=== PATIENT | female | born 1985 | race African-American/Black ===

== ENCOUNTER 2018-10-01 18:38 | Emergency (ER) | payer BC ==
[~2018-10-01] VITALS: Ht 162.6 cm; Wt 122.3 kg
[~2018-10-01 18:38] MED LIST: ALEVE220 MG OR; AMOXICILLIN500 MG PO; CIPRO500 MG PO; CIPROFLOXACN500 MG PO; FLEXERIL OR; FLEXERIL PO; IRON325 M1 PO; LOPRESSOR25 MG PO; LORTAB 5 OR; METOPROL TAR25 MG PO; NAPROSYN500 MG OR; NAPROSYN500 MG PO; NEXIUM20 M1 PO; NO; NO HOME MEDS; NO MEDS; PENICILLN VK500 MG OR; PENICILLN VK500 MG PO; PROTONIX40 MG OR; TRAMADOL HCL50 MG OR; TRAMADOL HCL50 MG PO; ULTRAM50 M1 OR; ULTRAM50 M1 PO; ULTRAM50 MG OR; ZOFRAN ODT4 MG PO
[2018-10-01 20:03] LABS: COCAINE NEGATIVE (NEGATIVE); TETRAHYDROCANNABIONOL NEGATIVE (NEGATIVE)
[2018-10-01 20:04] LABS: BARBITURATES NEGATIVE (NEGATIVE); METHADONE NEGATIVE (NEGATIVE); OXCYCODONE NEGATIVE (NEGATIVE); TRICYLIC ANTIDEPRESSANTS NEGATIVE (NEGATIVE)
[2018-10-01] MEDS ORDERED: IBUPROFEN600 MG PO (21:09)
[2018-10-01 21:27] VITALS: BP 176/86
== END 2018-10-01 21:27 | disposition home or self-care (01) | DRG 103 ==
LOC: ED 18:38
PROVIDERS: Emergency Medicine
DX: R51 Headache (principal); F15.90 Other stimulant use, unspecified, uncomplicated; F17.210 Nicotine dependence, cigarettes, uncomplicated

== ENCOUNTER 2018-11-20 00:06 | Emergency (ER) | payer BC ==
[~2018-11-20] VITALS: Ht 162.6 cm; Wt 122.7 kg
[~2018-11-20 00:06] MED LIST changes: +IBUPROFEN600 MG PO
[2018-11-20 00:51] LABS: HEMATOCRIT 34.2 % (37.0-47.0); IMMATURE GRANULOCYTES 0.3 % (0.0-5.0); MEAN CORPUSCULAR HGB 21.9 pG CALC (26.0-32.0); MEAN CORPUSCULAR HGB CONC 30.4 g/L CALC (32.0-36.0); NEUT# 9.09 thou/uL (2.00-7.15); RED BLOOD COUNT 4.74 mill/uL (4.20-5.60); RED CELL DISTRI WIDTH 16.5 % (11.5-15.5)
[2018-11-20 01:01] LABS: HEMOGLOBIN 10.4 g/dl (12.0-16.0); MEAN CELL VOLUME 72.2 fL CALC (80.0-100.0)
[2018-11-20] MEDS ORDERED: AMOXICILLIN500 MG PO (01:55)
[2018-11-20 02:22] VITALS: BP 160/90
== END 2018-11-20 02:15 | disposition home or self-care (01) | DRG 153 ==
LOC: ED 00:06
PROVIDERS: Family Medicine
DX: J01.90 Acute sinusitis, unspecified (principal); I10 Essential (primary) hypertension; F17.210 Nicotine dependence, cigarettes, uncomplicated

== ENCOUNTER 2019-05-03 16:25 | Emergency (ER) | payer BC ==
[~2019-05-03] VITALS: Ht 162.6 cm; Wt 130.0 kg
[2019-05-03 18:22] VITALS: BP 137/90
== END 2019-05-03 18:26 | disposition home or self-care (01) | DRG 556 ==
LOC: ED 16:25
DX: M79.645 Pain in left finger(s) (principal); M79.644 Pain in right finger(s); R20.0 Anesthesia of skin; I10 Essential (primary) hypertension; F17.200 Nicotine dependence, unspecified, uncomplicated; W93.2XXA Prolonged exposure in deep freeze unit or refrigerator, initial encounter; Y93.89 Activity, other specified; Y92.89 Other specified places as the place of occurrence of the external cause; Y99.0 Civilian activity done for income or pay

== ENCOUNTER 2019-05-28 20:12 | Emergency (ER) | payer BC ==
[~2019-05-28] VITALS: Ht 162.6 cm; Wt 113.0 kg
[2019-05-28 21:25] LABS: URINE BILIRUBIN - DIPSTICK NEGATIVE (NEGATIVE); URINE BLOOD DIPSTICK TRACE-INTACT (NEGATIVE); URINE COLOR YELLOW; URINE GLUCOSE - DIPSTICK NEGATIVE (NEGATIVE); URINE KETONE NEGATIVE (NEGATIVE); URINE LEUK ESTERASE TRACE (Negative); URINE NITRITE - DIPSTICK NEGATIVE (Negative); URINE PROTEIN - DIPSTICK NEGATIVE (NEG-TRACE); URINE SPECIFIC GRAVITY 1.025; URINE UROBILINOGEN - DIPSTICK 0.2 E.U./dL (0.2)
[2019-05-28 21:28] LABS: URINE CLARITY CLEAR
[2019-05-28 21:47] VITALS: BP 164/104
== END 2019-05-28 21:47 | disposition home or self-care (01) | DRG 563 ==
LOC: ED 20:12
PROVIDERS: Emergency Medicine
DX: S29.012A Strain of muscle and tendon of back wall of thorax, initial encounter (principal); X58.XXXA Exposure to other specified factors, initial encounter; O10.919 Unspecified pre-existing hypertension complicating pregnancy, unspecified trimester; O99.330 Smoking (tobacco) complicating pregnancy, unspecified trimester; F17.200 Nicotine dependence, unspecified, uncomplicated; Z3A.00 Weeks of gestation of pregnancy not specified

== ENCOUNTER 2019-06-13 19:45 | Emergency (ER) | payer BC ==
[~2019-06-13] VITALS: Ht 162.6 cm; Wt 114.0 kg
[2019-06-13 20:29] LABS: URINE BILIRUBIN - DIPSTICK NEGATIVE (NEGATIVE); URINE BLOOD DIPSTICK TRACE-INTACT (NEGATIVE); URINE COLOR YELLOW; URINE GLUCOSE - DIPSTICK NEGATIVE (NEGATIVE); URINE KETONE NEGATIVE (NEGATIVE); URINE LEUK ESTERASE NEGATIVE (NEGATIVE); URINE NITRITE - DIPSTICK NEGATIVE (Negative); URINE PROTEIN - DIPSTICK NEGATIVE (NEG-TRACE); URINE SPECIFIC GRAVITY >=1.030; URINE UROBILINOGEN - DIPSTICK 0.2 E.U./dL (0.2)
[2019-06-13] MEDS ORDERED: PRENATAL1 TA1 PO (20:50)
[2019-06-13 20:59] VITALS: BP 153/82
== END 2019-06-13 21:00 | disposition home or self-care (01) | DRG 833 ==
LOC: ED 19:45
DX: O26.891 Other specified pregnancy related conditions, first trimester (principal); R10.30 Lower abdominal pain, unspecified; O99.331 Smoking (tobacco) complicating pregnancy, first trimester; F17.210 Nicotine dependence, cigarettes, uncomplicated; Z3A.01 Less than 8 weeks gestation of pregnancy

== ENCOUNTER 2019-06-21 06:58 | Emergency (ER) | payer BC ==
[~2019-06-21] VITALS: Ht 162.6 cm; Wt 118.0 kg
[~2019-06-21 06:58] MED LIST changes: +PRENATAL1 TA1 PO
[2019-06-21 08:20] LABS: IMMATURE GRANULOCYTES 2.4 % (0.0-5.0); MEAN CELL VOLUME 71.2 fL CALC (80.0-100.0); MEAN CORPUSCULAR HGB 20.9 pG CALC (26.0-32.0); MEAN CORPUSCULAR HGB CONC 29.4 g/L CALC (32.0-36.0); NEUT# 13.01 thou/uL (2.00-7.15); RED BLOOD COUNT 3.3 mill/uL (4.20-5.60)
[2019-06-21 08:33] LABS: HEMATOCRIT 23.5 % (37.0-47.0)
[2019-06-21 08:34] LABS: HEMOGLOBIN 6.9 g/dl (12.0-16.0)
[2019-06-21 08:38] LABS: ALKALINE PHOSPHATASE 69 u/l (38-126); BILIRUBIN, TOTAL 0.2 mg/dL (0.0-1.4); BUN 6 mg/dL (7-17); BUN/CREATININE RATIO 6 (12-20 (CALC)); CHLORIDE 110 mmol/l (95-108); GFR > 60 ML/MIN (>=60 (CALC)); GFR FOR AFR.AMER. > 60 ML/MIN (>=60 (CALC)); LIPASE 54 u/l (23-300); SGOT/AST 20 u/l (14-36); SODIUM 137 mmol/l (137-146)
[2019-06-21 08:46] LABS: AMYLASE 33 u/l (30-110); ANION GAP 12 (6-22 (CALC))
[2019-06-21 08:47] LABS: ALBUMIN 2.7 g/dL (3.2-5.0); CARBON DIOXIDE 19 mmol/l (22-30); TOTAL PROTEIN 5.4 g/dL (6.3-8.2)
[2019-06-21 09:12] LABS: HEMATOCRIT 22.7 % (37.0-47.0)
[2019-06-21 09:14] LABS: HEMOGLOBIN 6.8 g/dl (12.0-16.0)
[2019-06-21 09:19] LABS: BETA-HCG, QUANT(RESULT NUMBER) 35803 mIU/mL
[2019-06-21 11:51] VITALS: BP 123/57
== END 2019-06-21 11:52 | DRG 833 ==
LOC: ED 06:58
PROVIDERS: Family Medicine
DX: O00.90 Unspecified ectopic pregnancy without intrauterine pregnancy (principal); F17.200 Nicotine dependence, unspecified, uncomplicated
CPT/HCPCS: J0131

== ENCOUNTER 2019-06-25 21:12 | Emergency (ER) | payer BC ==
[~2019-06-25] VITALS: Ht 162.6 cm; Wt 118.0 kg
[2019-06-25 22:56] VITALS: BP 180/82
== END 2019-06-25 22:59 | disposition home or self-care (01) | DRG 921 ==
LOC: ED 21:12
DX: L76.22 Postprocedural hemorrhage of skin and subcutaneous tissue following other procedure (principal); I10 Essential (primary) hypertension; F17.210 Nicotine dependence, cigarettes, uncomplicated; Y83.6 Removal of other organ (partial) (total) as the cause of abnormal reaction of the patient, or of later complication, without mention of misadventure at the time of the procedure; Z90.79 Acquired absence of other genital organ(s)

== ENCOUNTER 2019-08-18 14:32 | Emergency (ER) | payer OTHER, BC ==
[~2019-08-18] VITALS: Ht 162.6 cm; Wt 118.0 kg
[2019-08-18] MEDS ORDERED: LOPRESSOR50 M1 PO (15:20)
[2019-08-18] MEDS ORDERED: FLEXERIL PO (16:41)
[2019-08-18 17:00] VITALS: BP 140/85
== END 2019-08-18 17:06 | disposition home or self-care (01) | DRG 552 ==
LOC: ED 14:32
DX: S16.1XXA Strain of muscle, fascia and tendon at neck level, initial encounter (principal); I10 Essential (primary) hypertension; F17.210 Nicotine dependence, cigarettes, uncomplicated; V49.9XXA Car occupant (driver) (passenger) injured in unspecified traffic accident, initial encounter

== ENCOUNTER 2019-12-14 | Emergency (ER) | payer BC ==
[~2019-12-14] MED LIST changes: +LOPRESSOR50 M1 PO
== END 2019-12-14 08:22 | disposition home or self-care (01) | DRG 558 ==
DX: M77.9 Enthesopathy, unspecified (principal); I10 Essential (primary) hypertension; F17.210 Nicotine dependence, cigarettes, uncomplicated

== ENCOUNTER 2020-11-25 20:59 | Emergency (ER) | payer BC ==
[~2020-11-25] VITALS: Ht 162.6 cm; Wt 120.5 kg
[2020-11-25] MEDS ORDERED: MINOCYCLINE100 MG PO (21:34)
[2020-11-25 22:20] VITALS: BP 156/87
== END 2020-11-25 22:20 | disposition home or self-care (01) | DRG 951 ==
LOC: ED 20:59
DX: Z20.822 Contact with and (suspected) exposure to COVID-19 (principal); I10 Essential (primary) hypertension; F17.210 Nicotine dependence, cigarettes, uncomplicated

== ENCOUNTER 2020-11-28 19:03 | Emergency (ER) | payer BC ==
[~2020-11-28] VITALS: Ht 162.6 cm; Wt 120.0 kg
[~2020-11-28 19:03] MED LIST changes: +MINOCYCLINE100 MG PO
[2020-11-28 19:16] VITALS: BP 144/98
== END 2020-11-28 20:50 | disposition left against medical advice (07) | DRG 951 ==
LOC: ED 19:03 → LWOBS 20:44
DX: Z53.21 Procedure and treatment not carried out due to patient leaving prior to being seen by health care provider (principal)

== ENCOUNTER 2022-01-16 02:20 | Emergency (ER) | payer SELFPAY ==
[~2022-01-16] VITALS: Ht 162.6 cm; Wt 131.0 kg
[2022-01-16 02:26] VITALS: BP 152/87
[2022-01-16 02:31] VITALS: BP 142/54
[2022-01-16] MEDS ORDERED: FERRAPLUS 90 PO (02:53)
[2022-01-16] MEDS ORDERED: HYDROCHLOROT25 MG PO (02:53)
[2022-01-16 03:18] LABS: HEMATOCRIT 44.4 % (37.0-47.0); HEMOGLOBIN 14.1 g/dl (12.0-16.0); IMMATURE GRANULOCYTES 0.5 % (0.0-5.0); MEAN CORPUSCULAR HGB CONC 31.8 g/dL CAL (32.0-36.0); NEUT# 6.83 thou/uL (2.00-7.15); RED BLOOD COUNT 5.23 mill/uL (4.20-5.60); RED CELL DISTRI WIDTH 15.6 % (11.5-15.5)
[2022-01-16 03:21] LABS: MEAN CELL VOLUME 84.9 fL CALC (80.0-100.0)
[2022-01-16 03:22] LABS: URINE BILIRUBIN - DIPSTICK NEGATIVE (NEGATIVE); URINE BLOOD DIPSTICK SMALL (NEGATIVE); URINE COLOR YELLOW; URINE GLUCOSE - DIPSTICK NEGATIVE (NEGATIVE); URINE KETONE NEGATIVE (NEGATIVE); URINE PROTEIN - DIPSTICK NEGATIVE (NEG-TRACE); URINE SPECIFIC GRAVITY <=1.005; URINE UROBILINOGEN - DIPSTICK 0.2 E.U./dL (0.2)
[2022-01-16 03:23] LABS: URINE LEUK ESTERASE NEGATIVE (NEGATIVE); URINE NITRITE - DIPSTICK NEGATIVE (Negative)
[2022-01-16 03:30] VITALS: BP 147/81
[2022-01-16 03:37] LABS: URINE BACTERIA FEW hpf; URINE EPITHELIAL CELLS FEW EPI/hpf (0-FEW)
[2022-01-16 03:38] LABS: URINE TRICHOMONAS RARE hpf
[2022-01-16 03:39] LABS: ALKALINE PHOSPHATASE 108 u/l (38-126); AMYLASE 72 u/l (30-110); ANION GAP 10 (6-22 (CALC)); BUN 11 mg/dL (7-17); BUN/CREATININE RATIO 15 (12-20 (CALC)); CARBON DIOXIDE 25 mmol/l (22-30); CHLORIDE 106 mmol/l (95-108); CREATININE 0.8 mg/dL (0.5-1.0); GFR > 60 ML/MIN (>=60 (CALC)); GFR FOR AFR.AMER. > 60 ML/MIN (>=60 (CALC)); LIPASE 111 u/l (23-300); POTASSIUM 3.7 mmol/l (3.5-5.1); SGOT/AST 23 u/l (14-36); SODIUM 137 mmol/l (137-146); TOTAL PROTEIN 7.6 g/dL (6.3-8.2)
[2022-01-16 03:41] LABS: ALBUMIN 3.8 g/dL (3.2-5.0); BILIRUBIN, TOTAL 0.3 mg/dL (0.0-1.4)
[2022-01-16 03:51] LABS: MYOGLOBIN 23 ng/mL (0 - 62)
[2022-01-16] MEDS ORDERED: KEFLEX500 MG PO (03:56)
[2022-01-16 04:01] VITALS: BP 137/66
[2022-01-16 04:22] VITALS: BP 137/66
== END 2022-01-16 04:28 | disposition home or self-care (01) | DRG 948 ==
LOC: ED 02:20
PROVIDERS: Emergency Medicine
DX: R60.0 Localized edema (principal); N39.0 Urinary tract infection, site not specified; I10 Essential (primary) hypertension; F17.200 Nicotine dependence, unspecified, uncomplicated

== ENCOUNTER 2022-01-28 20:06 | Emergency (ER) | payer SELFPAY ==
[~2022-01-28] VITALS: Ht 162.6 cm; Wt 131.0 kg
[~2022-01-28 20:06] MED LIST changes: +FERRAPLUS 90 PO; +HYDROCHLOROT25 MG PO; +KEFLEX500 MG PO
[2022-01-28 20:56] VITALS: BP 132/81
[2022-01-28 20:59] VITALS: BP 132/81
[2022-01-28] MEDS ORDERED: FOLIC ACID1 MG PO (21:17)
[2022-01-28 21:47] LABS: HEMATOCRIT 40.3 % (37.0-47.0); HEMOGLOBIN 12.9 g/dl (12.0-16.0); IMMATURE GRANULOCYTES 0.2 % (0.0-5.0); MEAN CELL VOLUME 84.7 fL CALC (80.0-100.0); MEAN CORPUSCULAR HGB 27.1 pG CALC (26.0-32.0); NEUT# 6.79 thou/uL (2.00-7.15); RED BLOOD COUNT 4.76 mill/uL (4.20-5.60); RED CELL DISTRI WIDTH 15.5 % (11.5-15.5)
[2022-01-28 21:48] LABS: URINE BILIRUBIN - DIPSTICK NEGATIVE (NEGATIVE); URINE BLOOD DIPSTICK MODERATE (NEGATIVE); URINE COLOR YELLOW; URINE GLUCOSE - DIPSTICK NEGATIVE (NEGATIVE); URINE KETONE NEGATIVE (NEGATIVE); URINE LEUK ESTERASE NEGATIVE (NEGATIVE); URINE PROTEIN - DIPSTICK NEGATIVE (NEG-TRACE); URINE SPECIFIC GRAVITY >=1.030; URINE UROBILINOGEN - DIPSTICK 0.2 E.U./dL (0.2)
[2022-01-28 21:52] LABS: URINE NITRITE - DIPSTICK NEGATIVE (Negative)
[2022-01-28 21:57] LABS: ALBUMIN 3.9 g/dL (3.2-5.0); ALKALINE PHOSPHATASE 114 u/l (38-126); ANION GAP 13 (6-22 (CALC)); BILIRUBIN, TOTAL 0.3 mg/dL (0.0-1.4); BUN 11 mg/dL (7-17); BUN/CREATININE RATIO 13 (12-20 (CALC)); CARBON DIOXIDE 25 mmol/l (22-30); CHLORIDE 103 mmol/l (95-108); CREATININE 0.8 mg/dL (0.5-1.0); GFR > 60 ML/MIN (>=60 (CALC)); GFR FOR AFR.AMER. > 60 ML/MIN (>=60 (CALC)); SGOT/AST 22 u/l (14-36); SODIUM 138 mmol/l (137-146); TOTAL PROTEIN 7.8 g/dL (6.3-8.2); URINE SQUAMOUS EPITHELIAL CELL FEW EPI/hpf (0-FEW)
[2022-01-28 22:06] LABS: MYOGLOBIN 21 ng/mL (0 - 62)
[2022-01-28] MEDS ORDERED: NAPROXEN500 MG PO (23:19)
[2022-01-28] MEDS ORDERED: CYCLOBENZAPRINE10 MG PO (23:19)
== END 2022-01-28 23:40 | disposition home or self-care (01) | DRG 641 ==
LOC: ED 20:06
PROVIDERS: Emergency Medicine
DX: E87.6 Hypokalemia (principal); M79.10 Myalgia, unspecified site; I10 Essential (primary) hypertension; F17.200 Nicotine dependence, unspecified, uncomplicated

== ENCOUNTER 2022-05-24 17:54 | Emergency (ER) | payer SELFPAY ==
[~2022-05-24] VITALS: Ht 162.6 cm; Wt 127.2 kg
[~2022-05-24 17:54] MED LIST changes: +CYCLOBENZAPRINE10 MG PO; +FOLIC ACID1 MG PO; +NAPROXEN500 MG PO
[2022-05-24 18:03] VITALS: BP 146/86
[2022-05-24] MEDS ORDERED: NEURONTIN300 MG PO (19:40)
[2022-05-24 20:04] VITALS: BP 141/81
[2022-05-24 21:41] VITALS: BP 108/76
[2022-05-24 21:45] VITALS: BP 111/67
== END 2022-05-24 20:11 | disposition home or self-care (01) | DRG 74 ==
LOC: ED 17:54
DX: G62.9 Polyneuropathy, unspecified (principal); R06.02 Shortness of breath; I10 Essential (primary) hypertension; F17.200 Nicotine dependence, unspecified, uncomplicated

== ENCOUNTER 2022-06-22 20:27 | Emergency (ER) | payer SELFPAY ==
[~2022-06-22] VITALS: Ht 162.6 cm; Wt 127.0 kg
[2022-06-22] VITALS (12 sets, daily range): BP systolic 112–127; BP diastolic 62–77
[~2022-06-22 20:27] MED LIST changes: +NEURONTIN300 MG PO
[2022-06-22 21:06] LABS: IMMATURE GRANULOCYTES 0.1 % (0.0-5.0); MEAN CORPUSCULAR HGB 22.9 pG CALC (26.0-32.0); MEAN CORPUSCULAR HGB CONC 30.7 g/dL CAL (32.0-36.0); NEUT# 7.92 thou/uL (2.00-7.15); RED BLOOD COUNT 4.33 mill/uL (4.20-5.60); RED CELL DISTRI WIDTH 18.6 % (11.5-15.5)
[2022-06-22 21:08] LABS: HEMATOCRIT 32.2 % (37.0-47.0); HEMOGLOBIN 9.9 g/dl (12.0-16.0); MEAN CELL VOLUME 74.4 fL CALC (80.0-100.0)
[2022-06-22 21:22] LABS: ALBUMIN 3.7 g/dL (3.2-5.0); ALKALINE PHOSPHATASE 107 u/l (38-126); ANION GAP 11 (6-22 (CALC)); BILIRUBIN, TOTAL 0.2 mg/dL (0.0-1.4); BUN 8 mg/dL (7-17); BUN/CREATININE RATIO 12 (12-20 (CALC)); CARBON DIOXIDE 28 mmol/l (22-30); CHLORIDE 101 mmol/l (95-108); CREATININE 0.7 mg/dL (0.5-1.0); GFR FOR AFR.AMER. > 60 ML/MIN (>=60 (CALC)); GFR OTHER RACES > 60 ML/MIN (>=60 (CALC)); LIPASE 63 u/l (23-300); POTASSIUM 2.9 mmol/l (3.5-5.1); SGOT/AST 18 u/l (14-36); SODIUM 136 mmol/l (137-146); TOTAL PROTEIN 7.3 g/dL (6.3-8.2)
[2022-06-22 21:24] LABS: D-DIMER 0.3 mg/L (0.19-0.60)
[2022-06-22 21:29] LABS: ACT PARTIAL THROMBO TIME 26.8 SECONDS (20.0-32.5)
[2022-06-22 21:33] LABS: MYOGLOBIN 19 ng/mL (0 - 62)
[2022-06-23] MEDS ORDERED: POTASSIUM CHLO20 ME1 PO (01:24)
[2022-06-23] MEDS ORDERED: PROVERA10 MG PO (01:24)
[2022-06-23] MEDS ORDERED: PROMETHAZINE HY25 M1 PO (01:24)
[2022-06-23 01:38] VITALS: BP 118/62
[2022-06-23 02:39] LABS: URINE BILIRUBIN - DIPSTICK NEGATIVE (NEGATIVE); URINE GLUCOSE - DIPSTICK NEGATIVE (NEGATIVE); URINE PROTEIN - DIPSTICK 30 mg/dL (NEG-TRACE); URINE UROBILINOGEN - DIPSTICK 0.2 E.U./dL (0.2)
[2022-06-23 02:40] LABS: URINE BLOOD DIPSTICK LARGE (NEGATIVE); URINE LEUK ESTERASE NEGATIVE (NEGATIVE); URINE NITRITE - DIPSTICK NEGATIVE (Negative)
[2022-06-23 02:41] LABS: URINE COLOR RED; URINE KETONE Negative (NEGATIVE)
[2022-06-23 02:42] LABS: URINE BACTERIA FEW hpf; URINE EPITHELIAL CELLS FEW EPI/hpf (0-FEW); URINE RBC >100 RBC/hpf (0-5)
== END 2022-06-23 02:05 | disposition home or self-care (01) | DRG 313 ==
LOC: ED 20:27
PROVIDERS: Family Medicine
DX: R07.9 Chest pain, unspecified (principal); E87.6 Hypokalemia; N92.0 Excessive and frequent menstruation with regular cycle; I10 Essential (primary) hypertension; F17.200 Nicotine dependence, unspecified, uncomplicated

== ENCOUNTER 2022-06-30 20:25 | Emergency (ER) | payer SELFPAY ==
[2022-06-30] VITALS (12 sets, daily range): BP systolic 118–152; BP diastolic 64–92
[~2022-06-30] VITALS: Ht 162.6 cm; Wt 125.0 kg
[~2022-06-30 20:25] MED LIST changes: +POTASSIUM CHLO20 ME1 PO; +PROMETHAZINE HY25 M1 PO; +PROVERA10 MG PO
[2022-06-30] MEDS ORDERED: METFORMIN500 M2 PO (20:59)
[2022-06-30 22:06] LABS: HEMATOCRIT 26.7 % (37.0-47.0); HEMOGLOBIN 8.2 g/dl (12.0-16.0); IMMATURE GRANULOCYTES 0.4 % (0.0-5.0); MEAN CORPUSCULAR HGB 22.7 pG CALC (26.0-32.0); MEAN CORPUSCULAR HGB CONC 30.7 g/dL CAL (32.0-36.0); NEUT# 5.18 thou/uL (2.00-7.15); RED BLOOD COUNT 3.61 mill/uL (4.20-5.60); RED CELL DISTRI WIDTH 18.3 % (11.5-15.5)
[2022-06-30 22:13] LABS: ALBUMIN 3.7 g/dL (3.2-5.0); ALKALINE PHOSPHATASE 107 u/l (38-126); ANION GAP 12 (6-22 (CALC)); BILIRUBIN, TOTAL 0.2 mg/dL (0.0-1.4); BUN 10 mg/dL (7-17); BUN/CREATININE RATIO 13 (12-20 (CALC)); CARBON DIOXIDE 28 mmol/l (22-30); CHLORIDE 101 mmol/l (95-108); CREATININE 0.7 mg/dL (0.5-1.0); GFR FOR AFR.AMER. > 60 ML/MIN (>=60 (CALC)); GFR OTHER RACES > 60 ML/MIN (>=60 (CALC)); POTASSIUM 3.5 mmol/l (3.5-5.1); SGOT/AST 30 u/l (14-36); SODIUM 137 mmol/l (137-146); TOTAL PROTEIN 7.3 g/dL (6.3-8.2)
[2022-06-30 22:24] LABS: MYOGLOBIN 20 ng/mL (0 - 62)
[2022-06-30 22:34] LABS: URINE BILIRUBIN - DIPSTICK NEGATIVE (NEGATIVE); URINE BLOOD DIPSTICK LARGE (NEGATIVE); URINE COLOR YELLOW; URINE GLUCOSE - DIPSTICK NEGATIVE (NEGATIVE); URINE KETONE NEGATIVE (NEGATIVE); URINE LEUK ESTERASE NEGATIVE (NEGATIVE); URINE PROTEIN - DIPSTICK NEGATIVE (NEG-TRACE); URINE UROBILINOGEN - DIPSTICK 0.2 E.U./dL (0.2)
[2022-06-30 22:37] LABS: URINE NITRITE - DIPSTICK NEGATIVE (Negative)
[2022-06-30 22:47] LABS: URINE RBC 50-100 RBC/hpf (0-5)
== END 2022-06-30 23:40 | disposition home or self-care (01) | DRG 761 ==
LOC: ED 20:25
PROVIDERS: Emergency Medicine
DX: N93.8 Other specified abnormal uterine and vaginal bleeding (principal); D50.0 Iron deficiency anemia secondary to blood loss (chronic); I10 Essential (primary) hypertension; F17.200 Nicotine dependence, unspecified, uncomplicated; Z20.822 Contact with and (suspected) exposure to COVID-19

== ENCOUNTER 2022-12-20 00:12 | Emergency (ER) | payer BC ==
[~2022-12-20] VITALS: Ht 162.6 cm; Wt 124.0 kg
[~2022-12-20 00:12] MED LIST changes: +METFORMIN500 M2 PO
[2022-12-20 02:04] LABS: BASO% 0.1 % (0-3); IMMATURE GRANULOCYTES 0.5 % (0.0-5.0); LYMPH% 26.2 % (15-41); MEAN CELL VOLUME 74.3 fL CALC (80.0-100.0); MEAN CORPUSCULAR HGB 22.4 pG CALC (26.0-32.0); MEAN CORPUSCULAR HGB CONC 30.2 g/dL CAL (32.0-36.0); MONO% 4.6 % (2-13); NEUT# 7.13 thou/uL (2.00-7.15); NEUT% 67.6 % (42-76); RED BLOOD COUNT 5.48 mill/uL (4.20-5.60)
[2022-12-20 02:06] LABS: HEMATOCRIT 40.7 % (37.0-47.0); HEMOGLOBIN 12.3 g/dl (12.0-16.0)
[2022-12-20 02:19] LABS: ALKALINE PHOSPHATASE 116 u/l (38-126); ANION GAP 11 (6-22 (CALC)); BUN 13 mg/dL (7-17); BUN/CREATININE RATIO 17 (12-20 (CALC)); CARBON DIOXIDE 25 mmol/l (22-30); CHLORIDE 106 mmol/l (95-108); CREATININE 0.8 mg/dL (0.5-1.0); GFR FOR AFR.AMER. > 60 ML/MIN (>=60 (CALC)); GFR OTHER RACES > 60 ML/MIN (>=60 (CALC)); POTASSIUM 3.5 mmol/l (3.5-5.1); SGOT/AST 20 u/l (14-36); SODIUM 138 mmol/l (137-146); TOTAL PROTEIN 7.7 g/dL (6.3-8.2)
[2022-12-20] MEDS ORDERED: KEFLEX500 MG PO (03:20)
[2022-12-20] MEDS ORDERED: FLONASE AL50 MCG/ACT (03:20)
[2022-12-20 06:30] VITALS: BP 120/68
== END 2022-12-20 06:30 | disposition home or self-care (01) | DRG 153 ==
LOC: ED 00:12
PROVIDERS: Emergency Medicine
DX: J32.9 Chronic sinusitis, unspecified (principal); R00.2 Palpitations; Z20.822 Contact with and (suspected) exposure to COVID-19; F17.210 Nicotine dependence, cigarettes, uncomplicated; I10 Essential (primary) hypertension; R06.02 Shortness of breath

== ENCOUNTER 2023-04-17 00:40 | Emergency (ER) | payer BC ==
[~2023-04-17] VITALS: Ht 162.6 cm; Wt 124.0 kg
[~2023-04-17 00:40] MED LIST changes: +FLONASE AL50 MCG/ACT
[2023-04-17 00:56] VITALS: BP 127/81
[2023-04-17 01:00] VITALS: BP 129/71
[2023-04-17 01:16] VITALS: BP 147/120
[2023-04-17] MEDS ORDERED: VOLTAREN - GENE75 MG PO (01:24)
[2023-04-17 01:31] VITALS: BP 138/81
== END 2023-04-17 01:57 | disposition home or self-care (01) | DRG 563 ==
LOC: ED 00:40
DX: S93.401A Sprain of unspecified ligament of right ankle, initial encounter (principal); S90.31XA Contusion of right foot, initial encounter; I10 Essential (primary) hypertension; F17.200 Nicotine dependence, unspecified, uncomplicated; W50.0XXA Accidental hit or strike by another person, initial encounter; Y93.89 Activity, other specified; Y92.89 Other specified places as the place of occurrence of the external cause

== ENCOUNTER 2024-07-03 19:52 | Emergency (ER) | payer BC, OTHER ==
[~2024-07-03] VITALS: Ht 162.6 cm; Wt 127.0 kg
[~2024-07-03 19:52] MED LIST changes: +D3 50005000 UNIT PO; +PEPCID20 MG PO; +PROTONIX40 M2 PO; +VOLTAREN - GENE75 MG PO
[2024-07-03] MEDS ORDERED: SODIUM CHLORIDE 0.9% 1,000 ML IV ONE (20:20)
[2024-07-03 20:42] VITALS: BP 145/93
[2024-07-03 20:42] LABS: BASO% 0.2 % (0-3); HEMATOCRIT 42.1 % (37.0-47.0); HEMOGLOBIN 13.5 g/dl (12.0-16.0); IMMATURE GRANULOCYTES 0.1 % (0.0-5.0); LYMPH% 27.1 % (15-41); MEAN CELL VOLUME 86.3 fL CALC (80.0-100.0); MEAN CORPUSCULAR HGB 27.7 pG CALC (26.0-32.0); MEAN CORPUSCULAR HGB CONC 32.1 g/dL CAL (32.0-36.0); MONO% 4.9 % (2-13); NEUT# 6.33 thou/uL (2.00-7.15); NEUT% 65.7 % (42-76); RED BLOOD COUNT 4.88 mill/uL (4.20-5.60); RED CELL DISTRI WIDTH 13.9 % (11.5-15.5)
[2024-07-03 20:42] LABS: URINE BILIRUBIN - DIPSTICK Negative (NEGATIVE); URINE BLOOD DIPSTICK Large (NEGATIVE); URINE GLUCOSE - DIPSTICK Negative (NEGATIVE); URINE KETONE Negative (NEGATIVE); URINE LEUK ESTERASE Negative (NEGATIVE); URINE NITRITE - DIPSTICK Negative (Negative); URINE PROTEIN - DIPSTICK Negative (NEG-TRACE); URINE SPECIFIC GRAVITY >=1.030; URINE UROBILINOGEN - DIPSTICK 0.2 E.U./dL (0.2)
[2024-07-03 20:46] VITALS: BP 161/111
[2024-07-03 20:46] LABS: URINE COLOR Yellow
[2024-07-03 20:48] VITALS: BP 115/68
[2024-07-03 20:48] LABS: URINE RBC >100 RBC/hpf (0-5); URINE SQUAMOUS EPITHELIAL CELL FEW EPI/hpf (0-FEW)
[2024-07-03 20:52] LABS: ALBUMIN 3.8 g/dL (3.2-5.0); BILIRUBIN, TOTAL 0.4 mg/dL (0.02-1.3); CREATININE 0.8 mg/dL (0.5-1.0); POTASSIUM 3.3 mmol/l (3.5-5.1); TOTAL PROTEIN 7.4 g/dL (6.3-8.2)
[2024-07-03 21:00] VITALS: BP 130/76
[2024-07-03] MEDS ORDERED: MEDROXYPROGESTERONE ACETATE IM ONE (21:20)
[2024-07-03 21:27] VITALS: BP 130/76
[2024-07-03 21:33] VITALS: BP 114/79
== END 2024-07-03 21:49 | disposition home or self-care (01) | DRG 761 ==
LOC: ED 19:52
PROVIDERS: Family Medicine
DX: N92.4 Excessive bleeding in the premenopausal period (principal); D25.9 Leiomyoma of uterus, unspecified; I10 Essential (primary) hypertension; F17.200 Nicotine dependence, unspecified, uncomplicated

== ENCOUNTER 2024-12-19 16:24 | Emergency (ER) | payer OTHER ==
[~2024-12-19] VITALS: Ht 162.6 cm; Wt 137.8 kg
[2024-12-19 16:28] VITALS: BP 141/86
[2024-12-19 16:30] VITALS: BP 144/94
[2024-12-19 16:45] VITALS: BP 135/87
[2024-12-19 17:00] VITALS: BP 132/86
[2024-12-19] MEDS ORDERED: BENZONATATE200 MG PO (17:19)
== END 2024-12-19 17:30 | disposition home or self-care (01) | DRG 153 ==
LOC: ED 16:24
DX: J06.9 Acute upper respiratory infection, unspecified (principal); I10 Essential (primary) hypertension; F17.200 Nicotine dependence, unspecified, uncomplicated; Z20.822 Contact with and (suspected) exposure to COVID-19